=== PATIENT | male | born 1985 | race African-American/Black ===

== ENCOUNTER 2016-06-14 22:38 | Emergency (ER) | payer OTHER ==
[~2016-06-14] VITALS: Ht 175.3 cm; Wt 128.9 kg
[~2016-06-14 22:38] MED LIST: AUGMENTIN875 MG PO; DICYCLOMINE HCL20 MG PO; NAPROSYN500 MG PO; PEN-VEE K,VEET250 MG PO; PERCOCET 5/31 TABLET PO; PROMETHAZI25 MG/1 M2 IM
[2016-06-14] MEDS ORDERED: CIPROFLOXACIN H10 ML BOTH EYES (23:50)
[2016-06-14] MEDS ORDERED: BENADRYL50 MG PO (23:50)
[2016-06-15 00:08] VITALS: BP 134/61
== END 2016-06-15 00:09 | disposition home or self-care (01) ==
LOC: EME 22:38
DX: H10.45 Other chronic allergic conjunctivitis (principal)
CPT/HCPCS: 99281; 99284